=== PATIENT | female | born 1980 | race Caucasian/White ===

== ENCOUNTER 2016-12-20 05:14 | Day surgery (SDC) | payer BC ==
[2016-12-18 15:47] LABS: BASOPHILS 0.5 % (0-2); EOSINOPHILS 2.8 % (0-7); HEMOGLOBIN 14.3 g/dL (12-16); IMMATURE GRANULOCYTES 0.2 % (0-5); LYMPHOCYTES 34.5 % (15-50); MCH 29.7 pg (26.0-34.0); MCHC 33.3 g/dL (31.0-37.0); MCV 89.2 fL (80.0-100.0); MONOCYTES 4.5 % (2-11); NEUTROPHILS 57.5 % (40-80); PLATELET COUNT 276 10x3/uL (130-400); RBC 4.82 10x6/uL (4.00-5.40); RDW 13.1 % (11.5-14.5); WBC 9.9 10x3/uL (4.8-10.8)
[2016-12-18 16:02] LABS: ANION GAP 13.5 mmol/L (8-16); CALCIUM 9.7 mg/dL (8.5-10.1); CARBON DIOXIDE 26.5 mmol/L (21.0-32.0); CREATININE - SERUM 0.9 mg/dL (0.6-1.3)
[~2016-12-20 05:14] MED LIST: AMITRIPTYLINE H50 MG PO; ASPIRIN325 MG PO; KLONOPIN0.5 MG PO; MULTIPLE VITAMI1 TA1 PO; NEURONTIN 300300 MG PO; VITAMIN D31000 UNI2 PO; ZOLOFT50 MG PO; [UNRECOGNIZED DRUG - OTHER] PO
[2016-12-20 06:34] VITALS: BP 122/86; BMI 39.8
[2016-12-20 07:00] LABS: HCG URINE NEGATIVE (NEGATIVE)
--- NOTE | 2016-12-20 07:06 | HP ---
PATIENT: DAMARI MARTINEZ MEDICAL RECORD: [id number] ACCOUNT: [id number] LOCATION:[facility] : 78 ADMISSION DATE: 12/20/16 HISTORY AND PHYSICAL EXAMINATION HISTORY OF PRESENT ILLNESS: This patient is a 36-year-old white female with pelvic pain and ovarian cyst. MEDICAL HISTORY: DRUG ALLERGIES: CYMBALTA, MELOXICAM, SUMATRIPTAN, METRONIDAZOLE. CURRENT MEDICATIONS: Amitriptyline, aspirin, clonazepam, gabapentin, sertraline, and a vitamin. FAMILY HISTORY: Noncontributory. MEDICAL PROBLEMS: Include neuropathy, fibromyositis. MENSTRUAL HISTORY: Regular cycles. OBSTETRIC HISTORY: 3, para 3, smokes 1/2 pack per day. PREVIOUS SURGERIES: Include a laparoscopy and tubal. REVIEW OF SYSTEMS: Positive for pelvic pain. PHYSICAL EXAMINATION: GENERAL: Well-developed, well-nourished, morbidly obese white female. HEENT: Grossly unremarkable. LUNGS: Clear. HEART: Regular rate and rhythm without murmur. ABDOMEN: Soft. NEUROLOGIC: Grossly intact. PELVIC: Current and deferred for anesthesia. IMPRESSION: Pelvic pain, ovarian cyst. PLAN: Laparoscopy, ovarian cystectomy, probably right ovary, possible oophorectomy, all indicated procedures. I have discussed the potential complications including anesthetic complications, infections, bleeding, surgical complications, injury to other organs, necessitating more extensive surgery and all questions have been answered. TRANSINT:[id number] Voice Confirmation ID: [id number] DOCUMENT ID: [id number] HISTORY AND PHYSICAL [id number] MARTINEZDAMARI BURROUGHS OXANA COLLINS MD at 0706 CC: [id number] DICTATION DATE: 12/19/16 1334 BACK SHOE OPERATOR: 12/19/16 1400 [facility] [address] [place] [address]
--- NOTE | 2016-12-20 09:11 | NUR ---
DR NEVES FOR BLADDER SLING. TIME OUT AT 0859.
--- NOTE | 2016-12-20 10:14 | NUR ---
SCOPE PATCH BEHIND LEFT EAR ON ADMIT
--- NOTE | 2016-12-20 10:29 | NUR ---
GIRON REMOVED INTACT AFTER PROCUDURE
--- NOTE | 2016-12-21 13:56 | OP ---
PATIENT NAME: DAMARI MARTINEZ MEDICAL RECORD: [id number] :78 LOCATION:D.[facility] ADMISSION DATE: SURGEON: KARINA NEVES MD DATE OF OPERATION: 12/20/2016 SURGEON: Karina Neves MD ANESTHESIA: General anesthesia. PREOPERATIVE DIAGNOSIS: Female stress urinary incontinence. PROCEDURES: Cystoscopy, pubovaginal sling insertion [employer] Lynx mesh. FINDINGS: On cystoscopy, stress urinary incontinence. Single ureteral orifices bilaterally. No bladder tumors seen. No bladder or urethral injury noted. SPECIMENS: None. ESTIMATED BLOOD LOSS: 200 mL. CLINICAL HISTORY: This is a 36-year-old female, G3, P3, A0. She has had problems with urinary incontinence for [address] 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 She has seen another urologist at [facility], who recommended a pubovaginal sling. She has elected to have the sling procedure done here by me. On examination, she does have stress urinary incontinence with urethral hypermobility. There was a very minor degree of cystocele, grade I with no uterine descent. Today we are performing joint surgery. Dr. Espinoza is performing a laparoscopic right ovarian cystectomy. Afterwards, I will proceed with the cystoscopy and a pubovaginal sling. She is aware of the risk of the use of mesh in stress incontinence surgery including the risks of infection, graft erosion, graft exposure, pain, dyspareunia, and bleeding. She has already been covered perioperatively with Ancef 2 grams IV application support manager to the OR. SHE IS ALLERGIC TO CYMBALTA, MELOXICAM, SUMATRIPTAN, LACTOSE AND METRONIDAZOLE. DESCRIPTION OF PROCEDURE: Dr. Espinoza has already performed her procedure and the patient was already asleep and in lithotomy position. A weighted speculum was placed to hold down the posterior vaginal wall. Then, #2 nylon sutures were used as stay sutures to retract the labia majora laterally. These were attached to the medial thighs and tied. The patient already had an indwelling Chung catheter. The anterior vaginal wall was infiltrated with Pitressin solution. Twenty units of Pitressin was solubilized in 100mL of injectable saline. This was used for hydrodissection of the anterior vaginal wall. A T-shaped incision was made on the anterior vaginal wall. The crossbar of the T was made 1 cm proximal to the urethral meatus. The vertical bar of the T went along the anterior vaginal wall midline. Incision was made using a #15-blade. Metzenbaum scissors were then used to perform the dissection of the anterior vaginal wall away from the urethra and bladder neck. The dissection extended laterally until we penetrated through the pubocervical fascia to be able to reach the sidewall of the obturator membrane. We were near the anterior apex of the obturator fossa. At this point, the landmarks for the transobturator approach were made on the groin crease. The landmark at the insertion of the adductor longus tendon just inferior to the insertion of the OPERATIVE REPORT [id number] MARTINEZ,DAMARI MICHAEL tendon inferior to the muscle body, a hany was made in the groin crease. This was done on each side. A stab incision was made here. The trocar from the kit was used to go behind the pubic bone through this incision and out through the vaginal dissection space. The obturator membrane was penetrated at its apex. The sling was attached to the tip of the trocar. There was a loop provided on the end of the sling for this purpose. Then, this was pulled through to get the sling to go through a transobturator approach. This was done on each side. The graft has a midline marker, which was placed under the mid portion of the urethra. This was placed loosely at this point. The Chung catheter balloon was then deflated. The Chung catheter was removed. Cystoscopy was performed and no bladder injury was seen. The bladder was filled through the cystoscope using normal saline. With the Chung catheter still out and the bladder full of saline, the tab on the mid portion of the sling was cut off to release the sling. The graft arms were then gradually pulled tighter until suprapubic pressure would not produce any further leakage per the urethra. At this point, the clear plastic sheath material wrapping each graft arm was pulled away entirely. This left the graft arms coming out of the groin incisions. The graft arms were cut off at the skin level and allowed to retract into the subcutaneous fat. The wound was irrigated out using saline and gentamicin solution. The vaginal incision was closed using running 4-0 Monocryl. The skin incisions were closed using simple interrupted 4-0 Vicryl. Most of her bleeding occurred during the initial dissection as she has a very vascular periurethral space. At the end of the procedure, there was no active bleeding. The vagina was packed using Kerlix with estrogen cream. This packing will be removed prior to her being discharged home today. The Chung catheter was briefly reintroduced to empty her bladder, but then removed again. She will be expected to void prior to going home today. Discharge prescription is for [place] 5/325, 30 tablets, no refills and Zofran 4 mg q.8 hours p.r.n. 12 tablets with no refills. TRANSINT:[id number] Voice Confirmation ID: [id number] DOCUMENT ID: [id number] KARINA NEVES MD at 1356 CC: [id number] DICTATION DATE: 12/20/16 1008 REMOTE ENCODING CENTER MANAGER: 12/20/16 1150 [facility] 12/20/16 [facility] [address] [place] [address]
== END 2016-12-20 15:05 | disposition home or self-care (01) ==
LOC: D.OPS 05:14 → D.PAN 07:30 → D.OPS 15:05
PROVIDERS: Obstetrics & Gynecology
DX: N83.291 Other ovarian cyst, right side (principal); N39.3 Stress incontinence (female) (male); N81.10 Cystocele, unspecified; F17.210 Nicotine dependence, cigarettes, uncomplicated; G62.9 Polyneuropathy, unspecified; M79.7 Fibromyalgia; Z79.82 Long term (current) use of aspirin; Z79.899 Other long term (current) drug therapy; Z88.6 Allergy status to analgesic agent; Z88.8 Allergy status to other drugs, medicaments and biological substances; Z01.812 Encounter for preprocedural laboratory examination

== ENCOUNTER → 2016-12-29 17:58 | Outpatient (CLI) | payer BC ==
[2016-12-20 06:34] VITALS: BMI 39.8
== END | disposition home or self-care (01) ==
LOC: D.LABREF 17:58
DX: N39.0 Urinary tract infection, site not specified (principal)

== ENCOUNTER 2017-09-18 10:00 | Day surgery (SDC) | payer BC ==
[2017-09-17 08:20] LABS: HEMATOCRIT 41.4 % (36.0-48.0); HEMOGLOBIN 13.7 g/dL (12-16); MCH 29.7 pg (26.0-34.0); MCHC 33.1 g/dL (31.0-37.0); MCV 89.8 fL (80.0-100.0); MEAN PLATELET VOLUME 9.8 fL (7.4-10.4); RBC 4.61 10x6/uL (4.00-5.40); RDW 13.3 % (11.5-14.5); WBC 8.9 10x3/uL (4.8-10.8)
[~2017-09-18] VITALS: Ht 167.6 cm; Wt 113.9 kg
--- NOTE | ~2017-09-18 | OP ---
PATIENT NAME: DAMARI MARTINEZ MEDICAL RECORD: [id number] :78 LOCATION:[facility] ADMISSION DATE: SURGEON: ARINA HALE DO DATE OF OPERATION: 09/18/2017 PROCEDURE PERFORMED: Right de Quervain's release or first dorsal compartment release. PREOPERATIVE DIAGNOSIS: Right radial styloid tenosynovitis or de Quervain's tenosynovitis. POSTOPERATIVE DIAGNOSIS: Right radial styloid tenosynovitis or de Quervain's tenosynovitis. INDICATIONS: Ms. Martinez is a 37-year-old right hand dominant female who has been having injections in her first dorsal compartment for some time. She said it has been giving her problems, hurts with grabbing things and anytime she moves her wrist. The injections did not work and she wished something surgically to be done. She was informed of the risks and benefits including irritation to the radial sensory nerve and dislocation of the tendons. She is aware of that and understood the risks and benefits and was consented to the procedure. SURGEON: Arina Hale DO DESCRIPTION OF THE PROCEDURE: The patient was taken to the operative suite, laid in supine position, given 2 grams of Ancef for antibiotics. The right upper extremity had tourniquet placed above the elbow and then was prepped and draped in sterile fashion. Once this was done, the right upper extremity had been prepped and draped, timeout was performed and everyone was in agreement of correct site, side and patient. The right upper extremity was then exsanguinated with an Esmarch and the tourniquet was inflated to 250 mmHg and was up for 12 minutes. After this was done, the Esmarch was removed and an incision was marked out over the radial styloid just over the first dorsal compartment. Careful dissection was made down to the first dorsal compartment tendon sheath and incision was made on the skin with a knife and then Ragnell dissection was made bluntly down to the tendon sheath. This was encountered and was incised on the dorsal side of the tendon sheath. The tendons were then pulled through to ensure there were no extra slips. None were seen at that time and the complete release was done. A single stitch was then placed in the flap that had been created of the tendon sheath and then loosely tacked down to the opposite side. There were several slips of the tendon noted and all had been released. There was some inflammation noted on the tendons indicating the problem. After the sheath had been loosely approximated leaving a gap for plenty of room for them to move, the thumb was abducted in order to ensure that the tendons moved freely and easily and they did. The tourniquet was then let down at 12 minutes and any bleeding was coagulated with the bipolar at that time. Then, the skin was closed with 5-0 Monocryl in an inverted interrupted fashion. Then, 7 cc of 0.5% Marcaine without epinephrine were injected around the incision site and Steri-Strips were placed over the wounds. Then, Adaptic, 4 x 4's, Kerlix, and Coban was lightly wrapped over the wrist. The patient was awakened and taken to recovery in stable condition. Blood loss was minimal. TRANSINT:[id number] Voice Confirmation ID: [id number] DOCUMENT ID: [id number] OPERATIVE REPORT [id number] DAMARI MARTINEZ MICHAEL D, DO at 1553 CC: [id number] DICTATION DATE: 09/18/17 1424 COLLECTIONS CLERK: 09/18/17 1436 [facility] [address] [place] [address]
[2017-09-18 11:11] VITALS: BP 134/89; Ht 167.6 cm; Wt 113.9 kg
[2017-09-18] MEDS ORDERED: DURICEF500 MG PO (14:19)
[2017-09-18] MEDS ORDERED: PERCOCET 5-3251 TAB PO (14:19)
== END 2017-09-18 16:10 | disposition home or self-care (01) ==
LOC: D.OPS 10:00 → D.PAN 12:15 → D.OPS 12:15
PROVIDERS: Anesthesiology
DX: M65.4 Radial styloid tenosynovitis [de Quervain] (principal); Z01.812 Encounter for preprocedural laboratory examination

== ENCOUNTER 2018-02-22 05:51 | Emergency (ER) | payer BC ==
[~2018-02-22] VITALS: Ht 167.6 cm; Wt 131.8 kg
[~2018-02-22 05:51] MED LIST changes: +DURICEF500 MG PO; +PERCOCET 5-3251 TAB PO
[2018-02-22 05:55] VITALS: Ht 167.6 cm; Wt 131.8 kg
[2018-02-22] MEDS ORDERED: ARMOUR THYROID30 MG PO (05:57)
[2018-02-22] MEDS ORDERED: TENORMIN50 MG PO (06:14)
[2018-02-22 06:46] VITALS: BP 136/80
== END 2018-02-22 06:48 | disposition home or self-care (01) ==
LOC: D.ER 05:51
DX: F41.9 Anxiety disorder, unspecified (principal)

== ENCOUNTER → 2019-01-16 08:41 | Outpatient (CLI) | payer BC ==
[2018-02-22 05:55] VITALS: BMI 46.9
[~2019-01-16 08:41] MED LIST changes: +ARMOUR THYROID30 MG PO; +TENORMIN50 MG PO
== END | disposition home or self-care (01) ==
LOC: D.US 08:41
PROVIDERS: ATTEND Family Medicine
DX: R74.8 Abnormal levels of other serum enzymes (principal)

== ENCOUNTER 2019-05-16 09:00 | Outpatient (CLI) | payer BC ==
[2018-02-22 05:55] VITALS: BMI 46.9
== END 2019-05-16 10:00 | disposition home or self-care (01) ==
LOC: D.MAMMO 09:00
PROVIDERS: ATTEND Family Medicine
DX: Z12.31 Encounter for screening mammogram for malignant neoplasm of breast (principal)

== ENCOUNTER 2019-11-07 10:08 | Inpatient (IN) | payer BC ==
[~2019-11-07] VITALS: Ht 167.6 cm; Wt 108.7 kg
--- NOTE | 2019-11-07 10:36 | NUR ---
SL SITED RIGHT HAND WITH LAB DRAW INCLUDING BCX1
--- NOTE | 2019-11-07 10:37 | NUR ---
RT AT FOR ABG'S
--- NOTE | 2019-11-07 10:37 | NUR ---
BC#2 DRAWN PER SUMMER, JAVA ORACLE DEVELOPER
--- NOTE | 2019-11-07 10:39 | NUR ---
O2 SATS 88-89 % ON 2L PNC INCREASED TO 4 L PNC
[2019-11-07 11:01] LABS: BASOPHILS 0.2 % (0-2); EOSINOPHILS 0 % (0-7); HEMATOCRIT 42.8 % (36.0-48.0); HEMOGLOBIN 14.2 g/dL (12-16); LYMPHOCYTES 20.4 % (15-50); MCH 29.8 pg (26.0-34.0); MCHC 33.2 g/dL (31.0-37.0); MCV 89.9 fL (80.0-100.0); MEAN PLATELET VOLUME 10.3 fL (7.4-10.4); MONOCYTES 6.1 % (2-11); NEUTROPHILS 73.3 % (40-80); RBC 4.76 10x6/uL (4.00-5.40); RDW 13.4 % (11.5-14.5); WBC 4.4 10x3/uL (4.8-10.8)
[2019-11-07 11:02] LABS: PLATELET COUNT 166 10x3/uL (130-400)
[2019-11-07 11:06] LABS: APTT 27.9 SECONDS (22.8-39.4); INR 0.97 (0.85-1.17); PROTIME 12.8 SECONDS (11.6-15.0)
[2019-11-07 11:07] VITALS: BP 111/62
[2019-11-07 11:16] LABS: CALC OSMOLALITY 276 mosm/kg (275-300); CALCIUM 7.4 mg/dL (8.5-10.1); CARBON DIOXIDE 26.2 mmol/L (21.0-32.0); CHLORIDE - SERUM 101 mmol/L (98-107); CREATININE - SERUM 1.1 mg/dL (0.6-1.3); GLUCOSE 130 mg/dL (74-106); SODIUM 137 mmol/L (136-145); UREA NITROGEN 14 mg/dL (7-18); eGFR NON AFRICAN AMERICAN 58 mL/min (90-120)
[2019-11-07 11:25] LABS: ALBUMIN 3.2 g/dL (3.4-5.0); ALKALINE PHOSPHATASE 66 U/L (30-120); ALT (SGPT) 62 U/L (10-68); BILIRUBIN - TOTAL 0.57 mg/dL (0.2-1.3); CREATINE KINASE 51 UL (21-215); PROTEIN - SERUM 6.9 g/dL (6.4-8.2); TROPONIN-I < 0.017 ng/mL (0.000-0.060)
[2019-11-07 11:26] LABS: POTASSIUM - SERUM 3.3 mmol/L (3.5-5.1)
[2019-11-07 12:00] VITALS: BP 110/69
[2019-11-07 12:38] LABS: C-REACTIVE PROTEIN 5.5 mg/dL (0.0-0.9); THYROID STIMULATING HORMONE 1.34 uIU/mL (0.36-3.74)
[2019-11-07 13:00] VITALS: BP 98/68
--- NOTE | 2019-11-07 13:00 | NUR ---
URINE SENT TO THE LAB. PT STATES SHE IS ON HER PERIOD.
--- NOTE | 2019-11-07 13:05 | NUR ---
STOP TIME FOR ZITHROMAX - 1305
[2019-11-07 13:39] LABS: BILIRUBIN NEGATIVE (NEGATIVE); KETONE NEGATIVE (NEGATIVE); NITRITE NEGATIVE (NEGATIVE); UROBILINOGEN NORMAL (NORMAL)
[2019-11-07 13:41] LABS: BACTERIA FEW /hpf (NONE SEEN); EPITHELIAL CELLS OCC /hpf (0-5); WHITE CELLS - URINE RARE /hpf (0-5)
--- NOTE | 2019-11-07 13:45 | NUR ---
REPORT CALLED TO SAMANTA HAINES
[2019-11-07 14:00] VITALS: BP 119/80
[2019-11-07] MEDS ORDERED: SYNTHROID75 MCG PO (15:01)
[2019-11-07] MEDS ORDERED: BAYER CHEWABLE81 MG PO (15:01)
[2019-11-07 15:03] VITALS: BP 114/71; BMI 40.4
--- NOTE | 2019-11-07 15:14 | NUR ---
RECEIVED PT FROM ER. PT IS AAO AND UP AD LENY. RR LABORED ON EXERTION BUT EVEN AND UNLABORED AT REST ON 6L NC. VSS AND WNL. NO S/S OF DISTRESS NOTED AT THIS TIME. PT ORIENTED TO ROOM. CALL LIGHT W/I REACH. FALL PRECAUTIONS IN PLACE. PT DENIES ANY NEEDS AT THIS TIME. QUICKSTART, HISTORY, MED REQ, AND ASSESSMENT COMPLETE. WILL CTM.
[2019-11-07 15:31] LABS: ALBUMIN 3.2 g/dL (3.4-5.0); BILIRUBIN - DIRECT 0.13 mg/dL (0.00-0.30); BILIRUBIN - INDIRECT 0.47 mg/dL (0.00-1.00); BILIRUBIN - TOTAL 0.6 mg/dL (0.2-1.3); PROTEIN - SERUM 6.9 g/dL (6.4-8.2)
--- NOTE | 2019-11-07 19:11 | NUR ---
RECIEVED UP IN BED WIT EYES OPEN AND TV ON. ALERT AND ORIENTED X4.UP AD LENY TO B/R. DENIES ANY PAIN. O2@ 6 LITERS PER N/C. IV TO RT HAND WITH NS WITH 20KCL AT 50CC/HR. REMAINS IN DROPPLET ISOLATION R/T COVID. DENIES ANY NEEDS AT THIS TIME.
[2019-11-07 20:35] VITALS: BP 118/72
[2019-11-08 07:22] LABS: BASOPHILS 0.2 % (0-2); EOSINOPHILS 0 % (0-7); HEMATOCRIT 41.5 % (36.0-48.0); HEMOGLOBIN 13.5 g/dL (12-16); IMMATURE GRANULOCYTES 0.2 % (0-5); LYMPHOCYTES 25.8 % (15-50); MCH 29.5 pg (26.0-34.0); MCHC 32.5 g/dL (31.0-37.0); MCV 90.8 fL (80.0-100.0); MEAN PLATELET VOLUME 9.7 fL (7.4-10.4); MONOCYTES 5.9 % (2-11); NEUTROPHILS 67.9 % (40-80); PLATELET COUNT 164 10x3/uL (130-400); RBC 4.57 10x6/uL (4.00-5.40); RDW 13.6 % (11.5-14.5); WBC 5.3 10x3/uL (4.8-10.8)
[2019-11-08 07:32] LABS: D-DIMER-QUANTITATIVE 0.64 ug/mLFEU (0.20-0.54)
[2019-11-08 07:56] LABS: ANION GAP 11.8 mmol/L (8-16); C-REACTIVE PROTEIN 7.7 mg/dL (0.0-0.9); CALCIUM 7.3 mg/dL (8.5-10.1); CARBON DIOXIDE 29.7 mmol/L (21.0-32.0); POTASSIUM - SERUM 3.5 mmol/L (3.5-5.1)
[2019-11-08 08:07] VITALS: BP 135/79
[2019-11-08 10:34] LABS: NITRITE NEGATIVE (NEGATIVE)
[2019-11-08 10:35] LABS: BILIRUBIN NEGATIVE (NEGATIVE); KETONE NEGATIVE (NEGATIVE); UROBILINOGEN NORMAL (NORMAL); WHITE CELLS - URINE 0-5 /hpf (0-5)
[2019-11-08 10:36] LABS: BACTERIA FEW /hpf (NONE SEEN)
[2019-11-08 10:41] LABS: UDS - AMPHET NEGATIVE QUAL (NEGATIVE); UDS - BARB NEGATIVE QUAL (NEGATIVE); UDS - BENZO NEGATIVE QUAL (NEGATIVE); UDS - COCAINE NEGATIVE QUAL (NEGATIVE); UDS - OPIATE POSITIVE QUAL (NEGATIVE); UDS - PCP NEGATIVE QUAL (NEGATIVE); UDS - THC NEGATIVE QUAL (NEGATIVE)
[2019-11-08 12:02] VITALS: BP 117/71
[2019-11-08 15:36] VITALS: BP 109/69
[2019-11-08 21:17] VITALS: BP 125/78
[2019-11-09] VITALS (24 sets, daily range): BP systolic 92–146; BP diastolic 58–100
--- NOTE | 2019-11-09 00:46 | NUR ---
TEMP. 101.2. TYLENOL GIVEN.
--- NOTE | 2019-11-09 00:59 | NUR ---
WHEN FINISHING FFP O2 SAT WAS 88% ON 6 LITERS OF O2. COUGHING UP BLOODY SPUTUM. CALLED RT AND HE CAME UP AND ASSESSED PT. PLACE ON 12 LITERS HF WITH NO IMPROVEMENT IN SAT. TRIED NONREBREATHER WITH NO IMPROVEMENT. CALLED DR. HERRERA WITH ORDERS TO TRANSFER TO ICU. AND RT TO PLACE BIPAP TO SEE IF SATS IMPROVED. ALSO, FOR BLOOD GASES PRIOR TO TRANSFER. CALLED REPORT TO RN IN ICU. TRANSPORTED ON BED.
--- NOTE | 2019-11-09 01:48 | NUR ---
PATIENT ARRIVED FROM [facility] 2. ON BIPAP AT 100%, 14/8. BREATHING 33/MIN, SAT 100%. A/O X 4. CALL LIGHT IN REACH AND ORIENTED TO ROOM.
[2019-11-09 04:06] LABS: BASOPHILS 0.2 % (0-2); EOSINOPHILS 0 % (0-7); HEMATOCRIT 37.2 % (36.0-48.0); HEMOGLOBIN 11.9 g/dL (12-16); IMMATURE GRANULOCYTES 0.4 % (0-5); LYMPHOCYTES 38.6 % (15-50); MCH 29.7 pg (26.0-34.0); MEAN PLATELET VOLUME 9.6 fL (7.4-10.4); MONOCYTES 5.8 % (2-11); PLATELET COUNT 162 10x3/uL (130-400); RBC 4.01 10x6/uL (4.00-5.40); RDW 13.8 % (11.5-14.5); WBC 5.7 10x3/uL (4.8-10.8)
[2019-11-09 04:08] LABS: MCV 92.8 fL (80.0-100.0)
[2019-11-09 04:21] LABS: ALBUMIN 2.5 g/dL (3.4-5.0); ANION GAP 10.3 mmol/L (8-16); BILIRUBIN - TOTAL 0.44 mg/dL (0.2-1.3); CALCIUM 7.4 mg/dL (8.5-10.1); CARBON DIOXIDE 31.1 mmol/L (21.0-32.0); POTASSIUM - SERUM 3.4 mmol/L (3.5-5.1); PROTEIN - SERUM 6.1 g/dL (6.4-8.2)
--- NOTE | 2019-11-09 09:49 | NUR ---
GIVEN UPDATE ON PATIENT CONDITION
--- NOTE | 2019-11-09 10:13 | NUR ---
GIRON PLACED AT THIS TIME PER ORDERS FOR ACCURATE I&O CLEAR YELLOW URINE FLOWING INTO CLOSED CONTAINER. STERILE PROCEDURE KEPT DURING INSERTION. VSS. PT STATES SHE HAS SOME ANXIETY AND WISHES FOR HER KLONOPIN TO BE RESTARTED. WILL NOTIFY PHYSICIAN.
--- NOTE | 2019-11-09 20:22 | NUR ---
SPOKE WITH , UPDATE GIVEN.
--- NOTE | 2019-11-09 23:30 | NUR ---
PT TRUST ADVISOR LIGHT, REPORTS "IV MUST HAVE CAME OUT WHILE TURNING." IV FOUND IN BED, TIP INTACT, NO S/S OF BLEEDING AT SITE. RESITED X1 ATTEMPT 22 GAUGE TO LEFT HAND, TOLERATED WELL, INFUSING IVF WITHOUT ISSUE.
[2019-11-10] VITALS (24 sets, daily range): BP systolic 106–138; BP diastolic 73–96; Ht 167.6 cm; Wt 108.7 kg
[2019-11-10 04:41] LABS: BASOPHILS 0.2 % (0-2); EOSINOPHILS 0 % (0-7); HEMATOCRIT 38.5 % (36.0-48.0); HEMOGLOBIN 11.9 g/dL (12-16); IMMATURE GRANULOCYTES 0.4 % (0-5); LYMPHOCYTES 36.2 % (15-50); MCH 28.7 pg (26.0-34.0); MCHC 30.9 g/dL (31.0-37.0); MEAN PLATELET VOLUME 9.4 fL (7.4-10.4); MONOCYTES 6.8 % (2-11); NEUTROPHILS 56.4 % (40-80); PLATELET COUNT 176 10x3/uL (130-400); RBC 4.14 10x6/uL (4.00-5.40); RDW 13.9 % (11.5-14.5); WBC 4.7 10x3/uL (4.8-10.8)
[2019-11-10 05:12] LABS: ALBUMIN 2.6 g/dL (3.4-5.0); ANION GAP 10.3 mmol/L (8-16); BILIRUBIN - TOTAL 0.45 mg/dL (0.2-1.3); CALCIUM 7.5 mg/dL (8.5-10.1); CARBON DIOXIDE 30.5 mmol/L (21.0-32.0); POTASSIUM - SERUM 3.8 mmol/L (3.5-5.1); PROTEIN - SERUM 6.5 g/dL (6.4-8.2)
--- NOTE | 2019-11-10 07:20 | NUR ---
PT RESTING COMFORTABLY. BREATHS EVEN, REGULAR AND UNLABORED. NO SIGNS OR SYMPTOMS OF ACUTE DISTRESS NOTED AT THIS TIME. CL IN REACH, SRX2.
--- NOTE | 2019-11-10 08:54 | NUR ---
PT AWAKE AND OREINTED, LYING IN BED WATCHING TELIVISION. TOOK BIPAP OFF MOMENTARILY FOR MEDICATION ADMINISTERSTRATION. PT TOLERATED WELL FOR A MINUTE BEFORE DSATING. REPLACED BIPAP. WILL CNT. TO REASSES. CL IN REACH, SRX2.
--- NOTE | 2019-11-10 10:21 | NUR ---
SPOKE WITH PTS MOTHER AND ON THE PHONE. NO SIGNIFICANT CAHNGES TO REPORT. WILL CNT. TO MONITOR. CL IN REACH, SRX2.
--- NOTE | 2019-11-10 16:42 | NUR ---
PT AWAKE AND ORIENTED. HAD 2 SOFT/LIQUID BM. EXPRESSED CONCERNS ABOUT HAVING TO BE INTUBATED IF SHE DOES NOT IMPROVE BY TOMORROW. EXPLAINED THE PROCESS TO THE PT, EDUCATED ON HOW DRS KNOW IF SHE IS IMPROVING. ASSURED PT WE WOULD NOT DO ANYTHING WITHOUT DISCUSSING IT FIRST. PT VERBALIZES UNDERSTANDING. WILL CNT. TO MONITOR.
[2019-11-11] VITALS (24 sets, daily range): BP systolic 117–146; BP diastolic 78–98
[2019-11-11 04:28] LABS: BASOPHILS 0.2 % (0-2); EOSINOPHILS 0.2 % (0-7); HEMATOCRIT 38.5 % (36.0-48.0); HEMOGLOBIN 12.4 g/dL (12-16); IMMATURE GRANULOCYTES 0.8 % (0-5); LYMPHOCYTES 30.5 % (15-50); MCH 29.5 pg (26.0-34.0); MCHC 32.2 g/dL (31.0-37.0); MCV 91.4 fL (80.0-100.0); MEAN PLATELET VOLUME 9.2 fL (7.4-10.4); MONOCYTES 6.9 % (2-11); NEUTROPHILS 61.4 % (40-80); PLATELET COUNT 183 10x3/uL (130-400); RBC 4.21 10x6/uL (4.00-5.40); RDW 13.3 % (11.5-14.5); WBC 6.4 10x3/uL (4.8-10.8)
[2019-11-11 04:47] LABS: ALBUMIN 2.7 g/dL (3.4-5.0); ANION GAP 12.9 mmol/L (8-16); BILIRUBIN - TOTAL 0.6 mg/dL (0.2-1.3); CALCIUM 8.2 mg/dL (8.5-10.1); CARBON DIOXIDE 30.3 mmol/L (21.0-32.0); POTASSIUM - SERUM 4.2 mmol/L (3.5-5.1); PROTEIN - SERUM 6.8 g/dL (6.4-8.2)
--- NOTE | 2019-11-11 10:13 | NUR ---
SPOKE WITH PTS , ROMEL PROVIDED.
--- NOTE | 2019-11-11 15:00 | NUR ---
CONTINENT BOWEL MOVEMEN NOTED AT THIS TIME. BROWN, LARGE LOOSE VIA BEDPAN.0 GINA CARE/GIRON CARE PROVIDED. VSS. NO ACUTE DISTRESS NOTED. WILL CONTINUE PLAN OF CARE.
[2019-11-12] VITALS (24 sets, daily range): BP systolic 106–148; BP diastolic 66–97
[2019-11-12 05:05] LABS: BASOPHILS 0.1 % (0-2); EOSINOPHILS 0.7 % (0-7); HEMATOCRIT 38.2 % (36.0-48.0); HEMOGLOBIN 12.1 g/dL (12-16); IMMATURE GRANULOCYTES 0.7 % (0-5); LYMPHOCYTES 26.1 % (15-50); MCH 28.9 pg (26.0-34.0); MCHC 31.7 g/dL (31.0-37.0); MCV 91.2 fL (80.0-100.0); MEAN PLATELET VOLUME 9.5 fL (7.4-10.4); MONOCYTES 5.3 % (2-11); NEUTROPHILS 67.1 % (40-80); PLATELET COUNT 205 10x3/uL (130-400); RBC 4.19 10x6/uL (4.00-5.40); RDW 13.5 % (11.5-14.5); WBC 7.6 10x3/uL (4.8-10.8)
[2019-11-12 05:31] LABS: ALBUMIN 2.6 g/dL (3.4-5.0); ANION GAP 10.4 mmol/L (8-16); BILIRUBIN - TOTAL 0.53 mg/dL (0.2-1.3); CALCIUM 8.3 mg/dL (8.5-10.1); CARBON DIOXIDE 28.7 mmol/L (21.0-32.0); POTASSIUM - SERUM 4.1 mmol/L (3.5-5.1); PROTEIN - SERUM 6.7 g/dL (6.4-8.2)
--- NOTE | 2019-11-12 10:15 | NUR ---
Nutrition follow-up: Pt on BIPAP most of the time PO intake has been very poor labs reviewed Wt: 256# pt has had some nausea Recommend starting ProcalAmine PPN @ 125 ml/hr due to poor po intake RDN following.
[2019-11-13] VITALS (21 sets, daily range): BP systolic 91–134; BP diastolic 51–92
[2019-11-13 04:46] LABS: BASOPHILS 0.1 % (0-2); EOSINOPHILS 0.9 % (0-7); HEMATOCRIT 38.6 % (36.0-48.0); HEMOGLOBIN 12.3 g/dL (12-16); IMMATURE GRANULOCYTES 0.7 % (0-5); LYMPHOCYTES 26.9 % (15-50); MCH 29.1 pg (26.0-34.0); MCHC 31.9 g/dL (31.0-37.0); MCV 91.3 fL (80.0-100.0); MEAN PLATELET VOLUME 9.4 fL (7.4-10.4); MONOCYTES 6.4 % (2-11); PLATELET COUNT 204 10x3/uL (130-400); RBC 4.23 10x6/uL (4.00-5.40); RDW 13.3 % (11.5-14.5); WBC 6.7 10x3/uL (4.8-10.8)
[2019-11-13 04:59] LABS: ALBUMIN 2.5 g/dL (3.4-5.0); ALKALINE PHOSPHATASE 41 U/L (30-120); ALT (SGPT) 27 U/L (10-68); BILIRUBIN - TOTAL 0.56 mg/dL (0.2-1.3); CALC OSMOLALITY 282 mosm/kg (275-300); CARBON DIOXIDE 27.8 mmol/L (21.0-32.0); CHLORIDE - SERUM 107 mmol/L (98-107); CREATININE - SERUM 0.8 mg/dL (0.6-1.3); GLUCOSE 79 mg/dL (74-106); POTASSIUM - SERUM 4.7 mmol/L (3.5-5.1); PROTEIN - SERUM 6.4 g/dL (6.4-8.2); SODIUM 142 mmol/L (136-145); UREA NITROGEN 14 mg/dL (7-18); eGFR NON AFRICAN AMERICAN 84 mL/min (90-120)
--- NOTE | 2019-11-13 18:02 | NUR ---
PT'S SPOUSE CALLED AND UPDATED. WANTS TO SPEAK TO DR RASCON TOMORROW AFTER HE SEES PT.
--- NOTE | 2019-11-13 21:00 | NUR ---
PT STATED SHE WANTS THE CATHETER REMOVED BECAUSE ITS IRRITATING. NO S/S OF INFECTION NOTED. CHARGE NURSE INVOLVED. CATHETER REMOVED. PT A&O X4 ABLE TO MAKE NEEDS KNOWN AND ABLE TO GET AND USE THE BEDSIDE COMMODE. ALSO SHE DOES NOT WANT TO SLEEP WITH BIPAP TONIGHT. PT EDUCATED ON USE OF BIPAP. CHARGE NURSE INVOLVED. PT AGREE TO WEAR THE BIPAP TONIGHT. CATHETER REMOVED.
[2019-11-14] VITALS (25 sets, daily range): BP systolic 98–140; BP diastolic 64–90
--- NOTE | 2019-11-14 11:15 | NUR ---
Nutrition follow-up: Pt receiving a regular diet with po intake fair at this time Pt with 7 liters high flow O2 during the day; BIPAP at night Labs reviewed Wt: 239# RDN following.
--- NOTE | 2019-11-14 19:30 | NUR ---
HAD RECIVED REPORT AT DOOR. PT OBSERVED TO BE ON DROPLET ISOLATION. SHE IS SITTING UP IN BED WATCHING TV A&OX4, VSS. WHEN ASKED IF SHE IS IN ANY PAIN SHE SHAKES HER HEAD NO. I ASKED IF SHE HAD ANY NEEDS AND SHE SHOOK HER HEAD NO. NOTED THAT PT HAD BLOOD TINGED TISSUES ON TABLE AND I ASKED HER WHERE THEY WERE FROM. SHE VOICED"FROM BLOWING MY NOSE". I ASKED IF THAT WAS NEW AND SHE SAID "NO". BLOOD TINGED AMOUNT IS SCANT, AND NOT ATIVELY BLEEDING. PERFORMED FULL ASSESSMENT AT THIS TIME AND WILL DOC IN FLOWSHEET. IV TO LEFT HAND IS CDI, BEDSIDE CAMMODE IS CLOSE TO BED FOR SAFETY. PT IS ORIENTED TO USE OF CALL LIGHT WHEN NEED ASISTANCE OR NEEDS. BED IS LOW,SIDE RAISLX2,CALL LIGHT WITHIN REACH. WILL CONTINUE TO MONITOR
--- NOTE | 2019-11-14 22:00 | NUR ---
PT USED CALL LIGHT AND ASKED"CAN I GET MY KLONOPIN PLEASE". WILL SCAN AND DOC ON MAY. NO OTHER C/O OF PAIN OR NEEDS VOICED. VSS. BED IS LOW,SIDE RAISLX2,CALL LIGHT WITHIN REACH. WILL CONTINUE TO MONITOR
[2019-11-15] VITALS (25 sets, daily range): BP systolic 101–135; BP diastolic 44–97
--- NOTE | 2019-11-15 07:10 | NUR ---
REPORT RECEIVED FROM JDE DEVELOPER AND PATIENT [facility]ARE [facility] NURSING DEMOND WATERS RN AND ASCENCION LE RN. PATIENT IS LAYING IN BED ON BACK AWAKE, ALERT AND ORIENTED X 4. PATIENT IS STABLE AND VSS. PATIENT DENIES ANY NEEDS OR PAIN. WILL CONTINUE WITH PLAN OF CARE. SR UP X 2 BED IN LOW POSITION AND CALL LIGHT IN REACH.
--- NOTE | 2019-11-15 19:00 | NUR ---
CALEB SERRATO RN AND MYSELF RECIEVED REPORT ON PT. WE WILL BE CONDUCTING TEAM NURSING CARE TO PT FOR THE REMAINDER OF SHIFT. PT IS A&OX4, VSS. SHE VOICES"IM GOOD". AND VOICES NO C/O OF PAIN OR NEEDS AT THIS TIME. WILL PERFORM FULL ASSESSMENT AND DOC IN FLOWSHEET. LEFT HAND IV IS CDI. PT IS ORIENTED TO USE OF CALL LIGHT. BED IS LOW,SIDE RAISLX2,CALL LIGHT WITIHNI REACH. WILL CONINTUE TO MONITOR
--- NOTE | 2019-11-15 20:20 | NUR ---
PT USED CALL LIGHT AND ASKED"MAY I HAVE A KLONIPINE WHEN I GET MY NIGHT TIME MEDS?". I VOICED THAT I WOULD BRING HER ONE. HER VSS. UPON ARRIVING IN ROOM BY HAD HAD SMALL BM IN BEDSIDE CAMMODE AND VOIDED LARGE AMOUNT OF YELLOW URINE. PROVIDED HER WITH FRESH WATER. NO C/O OF PAIN OR OTHER NEEDS VOICED. SHE VOICED"I AM SO READY TO GO HOME". BED IS LEFT LOW,SIDE RIALSX2,CALL LIGHT WITHIN REACH. WILL CONITNUE TO MONITOR
[2019-11-16] VITALS (11 sets, daily range): BP systolic 99–128; BP diastolic 70–83
--- NOTE | 2019-11-16 09:40 | NUR ---
0700 REPORT RECIEVED AND CARE ASSUMED OF PATIENT .. SEE FLOW SHEET FOR SHIFT ASSESMENT FINDINGS.. CARE BY TEAM NURSING ODALIS GU RN AND MYSELF.. 0940 IV DCd PER ORDER
--- NOTE | 2019-11-16 17:14 | NUR ---
TRIED CALLING REPORT TO MED 2. NURSE IN ROOM. MED 2 NURSE WILL CALL BACK WHEN AVAILABLE.
--- NOTE | 2019-11-16 17:37 | NUR ---
ARRIVE TO ROOM VIA WHEELCHAIR FROM ICU. REPORT FROM SAMANTA CLEMENT. AMBULATES TO BED FROM WHEELCHAIR. GAIT STEADY. O2 @ 3L NC. DENIES ANY NEEDS. CONTINUE PLAN OF CARE AND SAFETY PRECAUTIONS.
--- NOTE | 2019-11-17 02:20 | NUR ---
PT RECEIVED PHONE CALL ABOUT HER FATHER PASSING, TEARFUL, REQUESTING PRN KLONOPIN. ADMINISTERED PER ORDER. DENIES ANY OTHER NEEDS AT THIS TIME. BED IN LOWEST, SRX1, CALL LIGHT WITHIN REACH. WILL CTM.
[2019-11-17 06:03] LABS: BASOPHILS 0.3 % (0-2); EOSINOPHILS 1.3 % (0-7); HEMATOCRIT 40.1 % (36.0-48.0); HEMOGLOBIN 12.8 g/dL (12-16); IMMATURE GRANULOCYTES 0.5 % (0-5); LYMPHOCYTES 35.8 % (15-50); MCH 28.9 pg (26.0-34.0); MCHC 31.9 g/dL (31.0-37.0); MCV 90.5 fL (80.0-100.0); MEAN PLATELET VOLUME 10.2 fL (7.4-10.4); MONOCYTES 6.5 % (2-11); NEUTROPHILS 55.6 % (40-80); PLATELET COUNT 207 10x3/uL (130-400); RBC 4.43 10x6/uL (4.00-5.40); RDW 13.5 % (11.5-14.5); WBC 8.7 10x3/uL (4.8-10.8)
[2019-11-17 06:30] LABS: ALBUMIN 3.1 g/dL (3.4-5.0); ANION GAP 13.6 mmol/L (8-16); BILIRUBIN - TOTAL 0.48 mg/dL (0.2-1.3); CARBON DIOXIDE 24.1 mmol/L (21.0-32.0); CREATININE - SERUM 0.9 mg/dL (0.6-1.3); POTASSIUM - SERUM 3.7 mmol/L (3.5-5.1); PROTEIN - SERUM 7.4 g/dL (6.4-8.2)
--- NOTE | 2019-11-17 07:20 | NUR ---
RECIEVE REPORT. ALERT AND ORIENTED X4. SITTING UP IN BED WATCHING TV. DENIES ANY NEEDS. NO SIGNS OF DISTRESS. O2 AT 3L NC. CONTINUE PLAN OF CARE AND SAFETY PRECAUTIONS.
[2019-11-17 09:18] VITALS: BP 119/72
[2019-11-17 12:17] VITALS: BP 124/69
[2019-11-17 16:03] VITALS: BP 132/72
[2019-11-17 20:00] VITALS: BP 112/71
[2019-11-18 04:00] VITALS: BP 101/60
[2019-11-18 04:47] LABS: BASOPHILS 0.3 % (0-2); EOSINOPHILS 0.7 % (0-7); HEMATOCRIT 39.4 % (36.0-48.0); HEMOGLOBIN 12.4 g/dL (12-16); IMMATURE GRANULOCYTES 0.7 % (0-5); LYMPHOCYTES 35.9 % (15-50); MCH 28.6 pg (26.0-34.0); MCHC 31.5 g/dL (31.0-37.0); MEAN PLATELET VOLUME 10.1 fL (7.4-10.4); MONOCYTES 6.3 % (2-11); NEUTROPHILS 56.1 % (40-80); PLATELET COUNT 203 10x3/uL (130-400); RBC 4.33 10x6/uL (4.00-5.40); RDW 13.5 % (11.5-14.5); WBC 9.7 10x3/uL (4.8-10.8)
[2019-11-18 05:03] LABS: ALBUMIN 3.1 g/dL (3.4-5.0); ALKALINE PHOSPHATASE 50 U/L (30-120); ALT (SGPT) 41 U/L (10-68); BILIRUBIN - TOTAL 0.57 mg/dL (0.2-1.3); CALC OSMOLALITY 276 mosm/kg (275-300); CALCIUM 9.4 mg/dL (8.5-10.1); CARBON DIOXIDE 25.7 mmol/L (21.0-32.0); CHLORIDE - SERUM 105 mmol/L (98-107); CREATININE - SERUM 0.7 mg/dL (0.6-1.3); GLUCOSE 95 mg/dL (74-106); POTASSIUM - SERUM 4.1 mmol/L (3.5-5.1); PROTEIN - SERUM 7.2 g/dL (6.4-8.2); SODIUM 139 mmol/L (136-145); UREA NITROGEN 11 mg/dL (7-18); eGFR NON AFRICAN AMERICAN > 90 mL/min (90-120)
--- NOTE | 2019-11-18 07:20 | NUR ---
RECIEVE REPORT. RESTING IN BED WITH EYES CLOSED. NO SIGNS OF DISTRESS. CONTINUE PLAN OF CARE AND SAFETY PRECAUTIONS.
[2019-11-18 08:35] VITALS: BP 107/69
--- NOTE | 2019-11-18 09:16 | MORECARE ---
CASE MANAGEMENT DISCHARGE SUMMARY PATIENT: DAMARI MARTINEZ UNIT: [id number] ADM DATE: 11/07/19 AGE: 39 : 79 SEX: F ROOM/BED: D.2133 AUTHOR: TERRELL BERG PHYSICIAN: REFERRING PHYSICIAN: MARIOLA MORE MD DATE OF SERVICE: 11/18/19 Discharge Plan Patient Name: DAMARI MARTINEZ Facility: [facility]:[place] : 1980 Planned Disposition: Home or Self Care Anticipated Discharge Date: Discharge Date: Expected LOS: Initial Reviewer: [email or web address] Initial Review Date: 11/07/2019 Generated: 11/18/19 10:15 am DCPIA - Discharge Planning Initial Assessment Updated by [email or web address]: Alicia Rock on 11/18/19 9:13 am * Is the patient Alert and Oriented? Yes * How many steps to enter\exit or inside your home? 1/0 * PCP [facility] * [facility] * Preadmission Environment Home with Family * ADLs Independent * Equipment None * List name and contact numbers for known caregivers / representatives who currently or will assist patient after discharge: Juan Martinez [phone] catrachita Mom (work) [phone] * Verbal permission to speak to the caregivers and representatives has been obtained from the patient. Yes * Community resources currently utilized None * Additional services required to return to the preadmission environment? Yes * Can the patient safely return to the preadmission environment? Yes * Has this patient been hospitalized within the prior 30 days at any hospital? No Patient Name: DAMARI MARTINEZ Page [id number] at 0916 All edits/amendments must be made on the electronic document DICTATION DATE: 11/18/19914 MANUFACTURING STOREPERSON: [employer] 11/18/19914 RPT#: [id number] DC DATE: STATUS: ADM IN [facility] [address] [place] [address] END OF REPORT
--- NOTE | 2019-11-18 09:23 | MORECARE ---
CASE MANAGEMENT DISCHARGE SUMMARY PATIENT: DAMARI MARTINEZ UNIT: [id number] ADM DATE: 11/07/19 AGE: 39 : 78 SEX: F ROOM/BED: D.0057 AUTHOR: TERRELL BERG PHYSICIAN: REFERRING PHYSICIAN: MARIOLA MORE MD DATE OF SERVICE: 11/18/19 Discharge Plan Patient Name: DAMARI MARTINEZ Facility: [facility]:[place] : 1980 Planned Disposition: Home or Self Care Anticipated Discharge Date: Discharge Date: Expected LOS: Initial Reviewer: [email or web address] Initial Review Date: 11/07/2019 Generated: 11/18/19 10:23 am Comments DCP- Discharge Planning Updated by [email or web address]: Alicia Rock on 11/18/19 8:[address] Patient Name: DAMARI MARTINEZ Admission Status: ER Accout number: [id number] Admission Date: 11-07-2019 : 1980 Admission Diagnosis:COVID-19 Attending: MARIOLA RAJPUT Current LOS: 11 Anticipated DC Date: Planned Disposition: Home or Self Care Primary Insurance: BCTNLIFE Discharge Planning Comments: CM met with patient to complete initial dc planning assessment. CM educated patient on the CM role and verbal consent given by patient to complete assessment. CM verified patient's address, phone number, and emergency contact phone numbers. Juan Martinez (spouse) [phone], Catrachita (mom work) [phone]. Patient lives with her mother, , and children. At discharge patient plans to return home and feels this is a safe discharge. CM discussed availability of home health, rehab services, and medical equipment. Patient states she is able to ambulate in her room without hyperventilating now, but is still on continuous oxygen. CM spoke with patient about the anticipated need for home o2. Patient is in agreement for oxygen testing, and verbalized choice for [facility]. Patient denies the need for home health services. She states she has family at home that is able to assist her if needed. Patient denies other known discharge needs at this time. Transportation provider at discharge will be her mother or . CM will continue to follow and will assist as needed with dc plans/needs. Abe Teacher: Alicia Rock MSN,RN,CM DCPIA - Discharge Planning Initial Assessment Updated by [id number]: Alicia Rock on 11/18/19 9:13 am * Is the patient Alert and Oriented? Yes * How many steps to enter\exit or inside your home? 1/0 * PCP [facility] * Preadmission Environment Home with Family * ADLs Independent * Equipment None * List name and contact numbers for known caregivers / representatives who currently or will assist patient after discharge: Juan Martinez [phone] catrachita Glez (work) [phone] * Verbal permission to speak to the caregivers and representatives has been obtained from the patient. Yes * Community resources currently utilized None * Additional services required to return to the preadmission environment? Yes * Can the patient safely return to the preadmission environment? Yes * Has this patient been hospitalized within the prior 30 days at any hospital? No Last DP export: 11/18/19 8:16 a Patient Name: DAMARI MARTINEZ Page [id number] at 0923 All edits/amendments must be made on the electronic document DICTATION DATE: 11/18/19922 HAND BRIM IRONER: CATIA 11/18/19922 RPT#: [id number] DC DATE: STATUS: ADM IN [facility] [address] [place] [address] END OF REPORT
--- NOTE | 2019-11-18 13:31 | NUR ---
Nutrition Follow-up: Pt in droplet isolation; covid-19+. Chart reviewed. Eating well. Diet: Regular PO intake: 100% x 9 meals Wt: 239.2# (11/13) Labs noted: Alb 3.1 Meds noted: Florajen, vitamin C, vitamin D, zinc sulfate, electrolyte protocol -RD following.
[2019-11-18 20:00] VITALS: BP 100/65
[2019-11-19 04:00] VITALS: BP 165/62
--- NOTE | 2019-11-19 04:47 | NUR ---
NURSE UNABLE TO DRAW AM LAB, TONY IN LAB NOTIFED, TONY STATED THAT SHE WILL LET PHLEBO. TECH KNOW.
[2019-11-19 07:16] LABS: BASOPHILS 0.4 % (0-2); EOSINOPHILS 1.8 % (0-7); HEMATOCRIT 39.6 % (36.0-48.0); HEMOGLOBIN 12.6 g/dL (12-16); IMMATURE GRANULOCYTES 0.5 % (0-5); LYMPHOCYTES 30.5 % (15-50); MCHC 31.8 g/dL (31.0-37.0); NEUTROPHILS 59.8 % (40-80); PLATELET COUNT 189 10x3/uL (130-400); RBC 4.35 10x6/uL (4.00-5.40); RDW 13.5 % (11.5-14.5); WBC 8.4 10x3/uL (4.8-10.8)
[2019-11-19 07:24] LABS: ALBUMIN 2.9 g/dL (3.4-5.0); ANION GAP 9.8 mmol/L (8-16); BILIRUBIN - TOTAL 0.6 mg/dL (0.2-1.3); CALCIUM 8.6 mg/dL (8.5-10.1); CARBON DIOXIDE 25.1 mmol/L (21.0-32.0); POTASSIUM - SERUM 3.9 mmol/L (3.5-5.1); PROTEIN - SERUM 6.9 g/dL (6.4-8.2)
[2019-11-19 07:28] LABS: CREATININE - SERUM 0.9 mg/dL (0.6-1.3)
[2019-11-19 10:51] VITALS: BP 136/82
[2019-11-19] MEDS ORDERED: ELIQUIS5 MG PO (11:34)
[2019-11-19] MEDS ORDERED: MUCINEX DM ER1 EAC1 PO (11:35)
[2019-11-19] MEDS ORDERED: Tessalon Perle PO (11:35)
[2019-11-19] MEDS ORDERED: ALBUTEROL SULF8.5 GM INH (11:36)
--- NOTE | 2019-11-19 11:48 | MORECARE ---
CASE MANAGEMENT DISCHARGE SUMMARY PATIENT: DAMARI MARTINEZ UNIT: [id number] ADM DATE: 11/07/19 AGE: 39 : 78 SEX: F ROOM/BED: D.2850 AUTHOR: TRERELL BERG PHYSICIAN: REFERRING PHYSICIAN: MARIOLA MORE MD DATE OF SERVICE: 11/19/19 Discharge Plan Patient Name: DAMARI MARTINEZ Facility: [facility]:[place] : 1980 Planned Disposition: Home or Self Care Anticipated Discharge Date: Discharge Date: Expected LOS: Initial Reviewer: [email or web address] Initial Review Date: 11/07/2019 Generated: 11/19/19 12:47 pm Comments DCP- Discharge Planning Updated by [email or web address]: Alicia Rock on 11/18/19 8:[address] Patient Name: DAMARI MARTINEZ Admission Status: ER Accout number: [id number] Admission Date: 11-07-2019 : 1980 Admission Diagnosis:COVID-19 Attending: MARIOLA RAJPUT Current LOS: 11 Anticipated DC Date: Planned Disposition: Home or Self Care Primary Insurance: BCTNLIFE Discharge Planning Comments: CM met with patient to complete initial dc planning assessment. CM educated patient on the CM role and verbal consent given by patient to complete assessment. CM verified patient's address, phone number, and emergency contact phone numbers. Juan Martinez (spouse) [phone], Catrachita (mom work) [phone]. Patient lives with her mother, , and children. At discharge patient plans to return home and feels this is a safe discharge. CM discussed availability of home health, rehab services, and medical equipment. Patient states she is able to ambulate in her room without hyperventilating now, but is still on continuous oxygen. CM spoke with patient about the anticipated need for home o2. Patient is in agreement for oxygen testing, and verbalized choice for [facility]. Patient denies the need for home health services. She states she has family at home that is able to assist her if needed. Patient denies other known discharge needs at this time. Transportation provider at discharge will be her mother or . CM will continue to follow and will assist as needed with dc plans/needs. Technical Planner: Alicia Rock MSN,RN,CM DCPIA - Discharge Planning Initial Assessment Updated by [email or web address]: Alicia Rock on 11/18/19 9:13 am * Is the patient Alert and Oriented? Yes * How many steps to enter\exit or inside your home? 1/0 * PCP [facility] * Preadmission Environment Home with Family * ADLs Independent * Equipment None * List name and contact numbers for known caregivers / representatives who currently or will assist patient after discharge: Juan Martinez [phone] catrachita Glez (work) [phone] * Verbal permission to speak to the caregivers and representatives has been obtained from the patient. Yes * Community resources currently utilized None * Additional services required to return to the preadmission environment? Yes * Can the patient safely return to the preadmission environment? Yes * Has this patient been hospitalized within the prior 30 days at any hospital? No External Providers [facility] Contact Date: Service Request Date: Service Type: Resolution: Reviewer: Comments: Coverage Notice Reviewer: [email or web address] - Alicia Rock Notice Issued Date-Time: 11/18/2019 9:40 Notice Type: Patient Choice Letter Notice Delivered To: Patient Relationship to Patient: Gill Tender Name: Delivery Method: PHONE - Phone Azalea Days: Prior Verbal Notification: Yes Recipient Understood Notice: Yes Recipient Signature: Dell Rec Note Co-signed by Attending: Coverage Notice Comment: DECLINATION FOR HH, [place] FOR [facility] FOR HOME AND PORT O2 IF NEEDED Last DP export: 11/18/19 8:24 a Patient Name: DAMARI MARTINEZ Page 16794 at 1148 All edits/amendments must be made on the electronic document DICTATION DATE: 11/19/19 1147 FIRE WARDEN: CATIA 11/19/19 1147 RPT#: [id number] DC DATE: STATUS: ADM IN [facility] [address] [place] [address] END OF REPORT
--- NOTE | 2019-11-19 12:20 | MORECARE ---
CASE MANAGEMENT DISCHARGE SUMMARY PATIENT: DAMARI MARTINEZ UNIT: [id number] ADM DATE: 11/07/19 AGE: 39 : 78 SEX: F ROOM/BED: D.4823 AUTHOR: TERRELL BERG PHYSICIAN: REFERRING PHYSICIAN: MARIOLA MORE MD DATE OF SERVICE: 11/19/19 Discharge Plan Patient Name: DAMARI MARTINEZ Facility: [facility]:[place] : 1980 Planned Disposition: Home or Self Care Anticipated Discharge Date: Discharge Date: Expected LOS: Initial Reviewer: [email or web address] Initial Review Date: 11/07/2019 Generated: 11/19/19 1:19 pm DCP- Discharge Planning Updated by [email or web address]: Alicia Rock on 11/18/19 8:[address] Patient Name: DAMARI MARTINEZ Admission Status: ER Accout number: [id number] Admission Date: 11-07-2019 : 1980 Admission Diagnosis:COVID-19 Attending: MARIOLA RAJPUT Current LOS: 11 Anticipated DC Date: Planned Disposition: Home or Self Care Primary Insurance: BCTNLIFE Discharge Planning Comments: CM met with patient to complete initial dc planning assessment. CM educated patient on the CM role and verbal consent given by patient to complete assessment. CM verified patient's address, phone number, and emergency contact phone numbers. Juan Martinez (spouse) [phone], Catrachita (mom work) [phone]. Patient lives with her mother, , and children. At discharge patient plans to return home and feels this is a safe discharge. CM discussed availability of home health, rehab services, and medical equipment. Patient states she is able to ambulate in her room without hyperventilating now, but is still on continuous oxygen. CM spoke with patient about the anticipated need for home o2. Patient is in agreement for oxygen testing, and verbalized choice for [facility]. Patient denies the need for home health services. She states she has family at home that is able to assist her if needed. Patient denies other known discharge needs at this time. Transportation provider at discharge will be her mother or . CM will continue to follow and will assist as needed with dc plans/needs. Electronics Engineer: Alicia Rock MSN,RN,CM DCPIA - Discharge Planning Initial Assessment Updated by [email or web address]: Alicia Rock on 11/18/19 9:13 am * Is the patient Alert and Oriented? Yes * How many steps to enter\exit or inside your home? 1/0 * PCP [facility] * [facility] * Preadmission Environment Home with Family * ADLs Independent * Equipment None * List name and contact numbers for known caregivers / representatives who currently or will assist patient after discharge: Juan Martinez [phone] catrachita Glez (work) [phone] * Verbal permission to speak to the caregivers and representatives has been obtained from the patient. Yes * Community resources currently utilized None * Additional services required to return to the preadmission environment? Yes * Can the patient safely return to the preadmission environment? Yes * Has this patient been hospitalized within the prior 30 days at any hospital? No Coverage Notice Reviewer: [id number] - Alicia Rock Notice Issued Date-Time: 11/18/2019 9:40 Notice Type: Patient Choice Letter Notice Delivered To: Patient Relationship to Patient: House Mover Name: Delivery Method: PHONE - Phone Azalea Days: Prior Verbal Notification: Yes Recipient Understood Notice: Yes Recipient Signature: Med Rec Note Co-signed by Attending: Coverage Notice Comment: DECLINATION FOR HH, [place] FOR [facility] FOR HOME AND PORT O2 IF NEEDED Last DP export: 11/19/19 10:48 a Patient Name: DAMARI MARTINEZ Page 19544 at 1220 All edits/amendments must be made on the electronic document DICTATION DATE: 11/19/19 1219 ATTORNEY AT LAW: CATIA 11/19/19 1219 RPT#: [id number] DC DATE: STATUS: ADM IN [facility] [address] [place] [address] END OF REPORT
--- NOTE | 2019-11-19 13:35 | NUR ---
PT DISCHARGED HOME VIA WHEELCHAIR WITH FAMILY. PIV REMOVED WITH CATHETER TIP FULLY INTACT. PT SIGNED PROPER DISCHARGE INSTRUCTIONS AND REMOVED ALL VALUABLES FROM THE ROOM.
--- NOTE | 2019-11-19 16:25 | MORECARE ---
CASE MANAGEMENT DISCHARGE SUMMARY PATIENT: DAMARI MARTINEZ UNIT: [id number] ADM DATE: 11/07/19 AGE: 39 : 78 SEX: F ROOM/BED: D.3610 AUTHOR: TERRELL BERG PHYSICIAN: REFERRING PHYSICIAN: MARIOLA MORE MD DATE OF SERVICE: 11/19/19 Discharge Plan Patient Name: DAMARI MARTINEZ Facility: [facility]:[place] : 1980 Planned Disposition: Home or Self Care Anticipated Discharge Date: 11/19/19 Discharge Date: 11/19/2019 Expected LOS: 12 Initial Reviewer: [email or web address] Initial Review Date: 11/07/2019 Generated: 11/19/19 5:24 pm DCP- Discharge Planning Updated by [email or web address]: Alicia Rock on 11/18/19 8:[address] Patient Name: DAMARI MARTINEZ Admission Status: ER Accout number: [id number] Admission Date: 11-07-2019 : 1980 Admission Diagnosis:COVID-19 Attending: MARIOLA RAJPUT Current LOS: 11 Anticipated DC Date: Planned Disposition: Home or Self Care Primary Insurance: BCTNLIFE Discharge Planning Comments: CM met with patient to complete initial dc planning assessment. CM educated patient on the CM role and verbal consent given by patient to complete assessment. CM verified patient's address, phone number, and emergency contact phone numbers. Juan Martinez (spouse) [phone], Catrachita (mom work) [phone]. Patient lives with her mother, , and children. At discharge patient plans to return home and feels this is a safe discharge. CM discussed availability of home health, rehab services, and medical equipment. Patient states she is able to ambulate in her room without hyperventilating now, but is still on continuous oxygen. CM spoke with patient about the anticipated need for home o2. Patient is in agreement for oxygen testing, and verbalized choice for [facility]. Patient denies the need for home health services. She states she has family at home that is able to assist her if needed. Patient denies other known discharge needs at this time. Transportation provider at discharge will be her mother or . CM will continue to follow and will assist as needed with dc plans/needs. Insemination Worker: Alicia Rock MSN,RN,CM DCPIA - Discharge Planning Initial Assessment Updated by [email or web address]: Alicia Rock on 11/18/19 9:13 am * Is the patient Alert and Oriented? Yes * How many steps to enter\exit or inside your home? 1/0 * PCP [facility] * Preadmission Environment Home with Family * ADLs Independent * Equipment None * List name and contact numbers for known caregivers / representatives who currently or will assist patient after discharge: Juan Martinez [phone] catrachita Mom (work) [phone] * Verbal permission to speak to the caregivers and representatives has been obtained from the patient. Yes * Community resources currently utilized None * Additional services required to return to the preadmission environment? Yes * Can the patient safely return to the preadmission environment? Yes * Has this patient been hospitalized within the prior 30 days at any hospital? No Coverage Notice Reviewer: [id number] - Alicia Rock Notice Issued Date-Time: 11/18/2019 9:40 Notice Type: Patient Choice Letter Notice Delivered To: Patient Relationship to Patient: Sales Marketing Coordinator Name: Delivery Method: PHONE - Phone Azalea Days: Prior Verbal Notification: Yes Recipient Understood Notice: Yes Recipient Signature: Med Rec Note Co-signed by Attending: Coverage Notice Comment: DECLINATION FOR HH, [place] FOR [facility] FOR HOME AND PORT O2 IF NEEDED Last DP export: 11/19/19 11:20 a Patient Name: DAMARI MARTINEZ Page [id number] at 1625 All edits/amendments must be made on the electronic document DICTATION DATE: 11/19/19 1624 LOCK CORNER MACHINE OPERATOR: CATIA 11/19/19 1624 RPT#: [id number] DC DATE:11/19/19 STATUS: DIS IN [facility] [address] [place] [address] END OF REPORT
--- NOTE | 2019-11-19 17:43 | MORECARE ---
CASE MANAGEMENT DISCHARGE SUMMARY PATIENT: DAMARI MARTINEZ UNIT: [id number] ADM DATE: 11/07/19 AGE: 39 : 78 SEX: F ROOM/BED: D.1831 AUTHOR: TERRELL BERG PHYSICIAN: REFERRING PHYSICIAN: MARIOLA MORE MD DATE OF SERVICE: 11/19/19 Discharge Plan Patient Name: DAMARI MARTINEZ Facility: [facility]:[place] : 1980 Planned Disposition: Home or Self Care Anticipated Discharge Date: 11/19/19 Discharge Date: 11/19/2019 Expected LOS: 12 Initial Reviewer: [email or web address] Initial Review Date: 11/07/2019 Generated: 11/19/19 6:43 pm DCP- Discharge Planning Updated by [email or web address]: Alicia Rock on 11/18/19 8:[address] Patient Name: DAMARI MARTINEZ Admission Status: ER Accout number: [id number] Admission Date: 11-07-2019 : 1980 Admission Diagnosis:COVID-19 Attending: MARIOLA RAJPUT Current LOS: 11 Anticipated DC Date: Planned Disposition: Home or Self Care Primary Insurance: BCTNLIFE Discharge Planning Comments: CM met with patient to complete initial dc planning assessment. CM educated patient on the CM role and verbal consent given by patient to complete assessment. CM verified patient's address, phone number, and emergency contact phone numbers. Juan Martinez (spouse) [phone], Catrachita (mom work) [phone]. Patient lives with her mother, , and children. At discharge patient plans to return home and feels this is a safe discharge. CM discussed availability of home health, rehab services, and medical equipment. Patient states she is able to ambulate in her room without hyperventilating now, but is still on continuous oxygen. CM spoke with patient about the anticipated need for home o2. Patient is in agreement for oxygen testing, and verbalized choice for [facility]. Patient denies the need for home health services. She states she has family at home that is able to assist her if needed. Patient denies other known discharge needs at this time. Transportation provider at discharge will be her mother or . CM will continue to follow and will assist as needed with dc plans/needs. Industry Operations Investigator: Alicia Rock MSN,RN,CM DCPIA - Discharge Planning Initial Assessment Updated by [email or web address]: Alicia Rock on 11/18/19 9:13 am * Is the patient Alert and Oriented? Yes * How many steps to enter\exit or inside your home? 1/0 * PCP [facility] * [facility] * Preadmission Environment Home with Family * ADLs Independent * Equipment None * List name and contact numbers for known caregivers / representatives who currently or will assist patient after discharge: Juan Martinez [phone] catrachita Mom (work) [phone] * Verbal permission to speak to the caregivers and representatives has been obtained from the patient. Yes * Community resources currently utilized None * Additional services required to return to the preadmission environment? Yes * Can the patient safely return to the preadmission environment? Yes * Has this patient been hospitalized within the prior 30 days at any hospital? No Coverage Notice Reviewer: [email or web address] - Alicia Rock Notice Issued Date-Time: 11/18/2019 9:40 Notice Type: Patient Choice Letter Notice Delivered To: Patient Relationship to Patient: Airfreight Operations Agent Name: Delivery Method: PHONE - Phone Azalea Days: Prior Verbal Notification: Yes Recipient Understood Notice: Yes Recipient Signature: Med Rec Note Co-signed by Attending: Coverage Notice Comment: DECLINATION FOR HH, [place] FOR [facility] FOR HOME AND PORT O2 IF NEEDED Last DP export: 11/19/19 3:25 p Patient Name: DAMARI MARTINEZ Page [id number] at 1743 All edits/amendments must be made on the electronic document DICTATION DATE: 11/19/191742 EXCEPTIONAL CHILDREN'S TEACHER: CATIA 11/19/191742 RPT#: [id number] DC DATE:11/19/19 STATUS: DIS IN [facility] [address] [place] [address] END OF REPORT
== END 2019-11-19 13:36 | disposition home or self-care (01) | DRG 871 ==
LOC: D.ER 10:08 → D.ICU 12:00 → D.M2 12:00 → D.ICU 11-09 01:28 → D.M2 11-16 17:32
PROVIDERS: Emergency Medicine; Family Medicine; Internal Medicine Pulmonary Disease; ADMIT Family Medicine; ATTEND Family Medicine
PROC: XW033E5 Introduction of Remdesivir Anti-infective into Peripheral Vein, Percutaneous Approach, New Technology Group 5 (ICD-10-PCS; 2019-11-07)
PROC: 5A09457 Assistance with Respiratory Ventilation, 24-96 Consecutive Hours, Continuous Positive Airway Pressure (ICD-10-PCS; principal; 2019-11-09)
DX: A41.9 Sepsis, unspecified organism (principal); U07.1 COVID-19; J18.9 Pneumonia, unspecified organism; J96.01 Acute respiratory failure with hypoxia; E87.6 Hypokalemia; M79.7 Fibromyalgia; F41.8 Other specified anxiety disorders; E03.9 Hypothyroidism, unspecified

== ENCOUNTER → 2019-12-23 08:15 | Outpatient (CLI) | payer BC ==
[2019-11-10 09:13] VITALS: BMI 41.3
[~2019-12-23 08:15] MED LIST changes: +ALBUTEROL SULF8.5 GM INH; +BAYER CHEWABLE81 MG PO; +ELIQUIS5 MG PO; +MUCINEX DM ER1 EAC1 PO; +SYNTHROID75 MCG PO; +Tessalon Perle PO
== END | disposition home or self-care (01) ==
LOC: D.RT 08:15
PROVIDERS: ATTEND Internal Medicine Pulmonary Disease
DX: R06.00 Dyspnea, unspecified (principal)